=== PATIENT | female | born 1965 | race Caucasian/White ===

== ENCOUNTER 2016-10-25 17:43 | Emergency (ER) | payer MEDICAID, OTHER ==
[~2016-10-25] VITALS: Ht 157.5 cm; Wt 59.0 kg
[~2016-10-25 17:43] MED LIST: Acetaminophen PO; CLON0.5T PO; ESCI10TA PO; LACT1CAP57 PO
[2016-10-25] MEDS ORDERED: IBUP-1610 PO (17:55)
[2016-10-25] MEDS ORDERED: ALBUTEROL SULFATE 2.5 MG/3 ML NEBU NEB ONE (19:00)
[2016-10-25] MEDS ORDERED: ASPIRIN 81 MG TAB.CHEW PO ONE (19:00)
[2016-10-25] MEDS ORDERED: ASPIRIN 81 MG TAB.CHEW ONE (19:08)
[2016-10-25 19:23] LABS: ABG HCO3 24.9 mmol/L; ABG PCO2 37.4 mmHg (35.0-45.0); ABG PH 7.441 (7.350-7.450); ABG PO2 85.5 mmHg (75.0-100.0); ABG SITE RIGHT RADIAL; ABG TOTAL HEMOGLOBIN 13.6 G/dL (12.0-16.0); COHb 2.3 % (0.5-1.5); MetHb 0.2 % (0.0-1.5); O2Hb 94.4 % (94.0-97.0)
[2016-10-25 19:25] LABS: *BILIRUBIN,URIN NEGATIVE (NEGATIVE); *BLOOD, URINE Trace-intact (NEGATIVE); *CLARITY,URINE CLEAR (CLEAR); *COLOR,URINE YELLOW (YELLOW); *KETONES,URINE NEGATIVE (NEGATIVE); *PROTEIN,URINE TRACE (NEGATIVE); BASOPHILS % (AUTO) 0.4 % (0.0-2.0); EOSINOPHILS # (AUTO) 0.2 K/uL (0.0-0.7); EOSINOPHILS % (AUTO) 1.9 % (0.0-7.0); HEMATOCRIT 40.3 % (31.2-41.9); HEMOGLOBIN 14.1 g/dL (10.9-14.3); LEUKOCYTE ESTERASE ,URINE NEGATIVE (NEGATIVE); LYMPHOCYTES # (AUTO) 2.1 K/uL (20.0-40.0); LYMPHOCYTES % (AUTO) 21.6 % (20.5-51.5); MEAN CORPUSCULAR HGB CONC 35 g/dL (32.3-35.6); MEAN CORPUSCULAR VOLUME 86.2 fL (75.5-95.3); MONOCYTES # (AUTO) 0.5 K/uL (2.0-10.0); MONOCYTES % (AUTO) 5.3 % (0.0-11.0); NEUTROPHILS # (AUTO) 6.8 K/uL (1.8-8.9); NEUTROPHILS % (AUTO) 70.8 % (38.5-71.5); NITRITE, URINE NEGATIVE (NEGATIVE); PH,URINE 7.5 (5.0-8.0); PLATELET COUNT (AUTO) 268 K/uL (179-408); RED BLOOD CELL COUNT(AUTO) 4.68 MIL/uL (3.63-4.92); RED CELL DISTRIBUTION WIDTH 12.7 % (12.3-17.7); UGLUCOSE NEGATIVE (NEGATIVE); WHITE BLOOD COUNT (AUTO) 9.6 K/uL (3.8-11.8)
[2016-10-25] MEDS ORDERED: ALBUTEROL SULFATE 2.5 MG/3 ML NEBU ONE (19:26)
--- NOTE | 2016-10-25 19:30 | NUR ---
PT REFUSED TO HAVE HEP LOCK. ERMD AWARE
[2016-10-25 19:31] LABS: CREATININE 0.9 mg/dL (0.6-1.3); POTASSIUM 4.1 mmol/L (3.5-5.1)
[2016-10-25 19:35] LABS: BACTERIA,URINE FEW /HPF (NONE SEEN); RBC,URINE 0-3 /HPF (0-3)
[2016-10-25 19:36] LABS: SQUAMOUS EPITHELIAL CELL,UR MODERATE /HPF (NONE SEEN)
[2016-10-25 19:37] LABS: ALBUMIN 4.1 g/dL (3.4-5.0); BILIRUBIN,TOTAL 0.5 mg/dL (0.2-1.0); TOTAL PROTEIN, SERUM 7.6 g/dL (6.4-8.2)
[2016-10-25 21:02] VITALS: BP 130/85
--- NOTE | 2016-10-25 21:02 | NUR ---
Patient discharged to home in stable conditon WITH SISTER TAKING PATIENT HOME. Written and verbal after care instructions given. Patient verbalizes understanding of instructions. WALKED OUT OF ER WITH STEADY GAIT
== END 2016-10-25 21:03 | disposition home or self-care (01) ==
LOC: ER 17:43
DX: J45.909 Unspecified asthma, uncomplicated (principal); R94.31 Abnormal electrocardiogram [ECG] [EKG]; F41.9 Anxiety disorder, unspecified; Z88.2 Allergy status to sulfonamides
CPT/HCPCS: 36415; 36600; 70030-TC; 71010; 85025; 85610; 87400; 93005; A4663

== ENCOUNTER 2016-12-12 16:11 | Emergency (ER) | payer MEDICAID ==
[~2016-12-12] VITALS: Ht 157.5 cm; Wt 52.2 kg
[~2016-12-12 16:11] MED LIST changes: -Acetaminophen PO; -ESCI10TA PO; +IBUP-1610 PO; -LACT1CAP57 PO
[2016-12-12] MEDS ORDERED: IV NORMAL SALINE 1000 ML BAG IV ONE (16:30)
[2016-12-12] MEDS ORDERED: ALBUTEROL SULFATE 2.5 MG/3 ML NEBU CONT NEB ONE (16:30)
[2016-12-12] MEDS ORDERED: IPRATROPIUM BROMIDE 0.5 MG/2.5 ML NEBU NEB ONE (16:30)
[2016-12-12] MEDS ORDERED: ALBUTEROL SULFATE 2.5 MG/ 0.5 ML NEBU ONE (16:33)
[2016-12-12] MEDS ORDERED: IPRATROPIUM BROMIDE 0.5 MG/2.5 ML NEBU ONE (16:33)
[2016-12-12 16:40] LABS: BASOPHILS % (AUTO) 0.7 % (0.0-2.0); EOSINOPHILS # (AUTO) 0.1 K/uL (0.0-0.7); EOSINOPHILS % (AUTO) 1.7 % (0.0-7.0); HEMATOCRIT 37.1 % (37-47); HEMOGLOBIN 12.7 G/DL (12.0-16.0); LYMPHOCYTES # (AUTO) 1.3 K/UL (0.8-4.8); LYMPHOCYTES % (AUTO) 19.3 % (20.5-51.5); MEAN CORPUSCULAR HEMOGLOBIN 29.2 UUG (27.0-31.0); MEAN CORPUSCULAR HGB CONC 34 g/dL (32.0-37.0); MONOCYTES # (AUTO) 0.4 K/UL (0.1-1.30); MONOCYTES % (AUTO) 6.1 % (0.0-11.0); NEUTROPHILS # (AUTO) 4.9 K/UL (1.8-8.9); NEUTROPHILS % (AUTO) 72.2 % (38.5-71.5); PLATELET COUNT (AUTO) 210 K/UL (150-450); RED BLOOD CELL COUNT(AUTO) 4.36 MIL/UL (4.2-5.4); WHITE BLOOD COUNT (AUTO) 6.7 K/UL (4.0-11.2)
--- NOTE | 2016-12-12 16:41 | NUR ---
PT CAME FROM HOME. PT IS AMBULATORY WITH STEADY GAIT. SPEAKING IN BROKEN SENTENCES. C/O COUGH X 1 WEEK. PT STATES OF HAVING HX OF PNA. PT VERBALIZED, "IT FEELS JUST LIKE THE FIRST TIME I HAD PNA." BREATHING TXT GIVEN BY RT. WCTM PT AT THIS TIME. IVF INFUSING ORDERED.
[2016-12-12 16:49] LABS: CREATININE 0.8 mg/dL (0.6-1.3); POTASSIUM 3.8 mmol/L (3.5-5.1)
[2016-12-12 17:01] LABS: BILIRUBIN,DIRECT 0.1 mg/dL (0.0-0.2); BILIRUBIN,TOTAL 0.5 mg/dL (0.2-1.0); TOTAL PROTEIN, SERUM 7.4 g/dL (6.4-8.2)
--- NOTE | 2016-12-12 17:26 | NUR ---
Patient discharged to home in stable conditon. Written and verbal after care instructions given, precriptions provided per MD Ross's order. Patient verbalizes understanding of instructions. No further questions or concerns noted prior on leaving the ED.
== END 2016-12-12 17:28 | disposition home or self-care (01) ==
LOC: ER 16:26
DX: J40 Bronchitis, not specified as acute or chronic (principal); Z88.2 Allergy status to sulfonamides; Z90.49 Acquired absence of other specified parts of digestive tract
CPT/HCPCS: 36415; 70030-TC; 71010; 85025; 87040; 93005; A4663; J3590

== ENCOUNTER 2016-12-31 11:15 | Emergency (ER) | payer OTHER ==
[~2016-12-31] VITALS: Ht 157.5 cm; Wt 52.2 kg
--- NOTE | 2016-12-31 11:23 | NUR ---
ER MD at the bedside for eval and exam.
--- NOTE | 2016-12-31 11:25 | NUR ---
Pt states the incident occured at [facility] in [place] ( [address] [place] [address] ) at approx 0300 today.
[2016-12-31] MEDS ORDERED: KETOROLAC TROMETHAMINE 15 MG INJ IV ONE (11:30)
[2016-12-31] MEDS ORDERED: MORPHINE SULFATE 2 MG/1 ML DISP.SYRIN IV ONE (11:30)
--- NOTE | 2016-12-31 11:35 | NUR ---
Called [facility] non-emergency number and reported incident to elevator operator service #[phone] who stated she will dispatch officers to come speak with the pt.
[2016-12-31] MEDS ORDERED: KETOROLAC TROMETHAMINE 15 MG INJ ONE (11:38)
[2016-12-31] MEDS ORDERED: MORPHINE SULFATE 4 MG/1 ML DISP.SYRIN ONE ×2 (11:38→13:02)
[2016-12-31 11:43] LABS: BASOPHILS % (AUTO) 0.3 % (0.0-2.0); EOSINOPHILS % (AUTO) 0.5 % (0.0-7.0); HEMOGLOBIN 12.7 G/DL (12.0-16.0); LYMPHOCYTES # (AUTO) 1.7 K/UL (0.8-4.8); LYMPHOCYTES % (AUTO) 17.3 % (20.5-51.5); MEAN CORPUSCULAR HEMOGLOBIN 29.2 UUG (27.0-31.0); MEAN CORPUSCULAR HGB CONC 34 g/dL (32.0-37.0); MEAN CORPUSCULAR VOLUME 85.1 FL (81.0-99.0); MONOCYTES # (AUTO) 0.7 K/UL (0.1-1.30); NEUTROPHILS # (AUTO) 7.2 K/UL (1.8-8.9); NEUTROPHILS % (AUTO) 74.9 % (38.5-71.5); PLATELET COUNT (AUTO) 237 K/UL (150-450); RED BLOOD CELL COUNT(AUTO) 4.34 MIL/UL (4.2-5.4); WHITE BLOOD COUNT (AUTO) 9.6 K/UL (4.0-11.2)
--- NOTE | 2016-12-31 11:45 | NUR ---
Pt signed consent for CT contrast, placed in the chart.
[2016-12-31] MEDS ORDERED: IV NORMAL SALINE 250 ML IV ONE (11:47)
[2016-12-31] MEDS ORDERED: IOHEXOL 300MG/ML 100 ML INFUS..BTL ONE (11:47)
[2016-12-31 11:51] LABS: CREATININE 0.7 mg/dL (0.6-1.3); POTASSIUM 3.6 mmol/L (3.5-5.1)
[2016-12-31 11:57] LABS: BILIRUBIN,DIRECT 0.1 mg/dL (0.0-0.2); BILIRUBIN,TOTAL 0.4 mg/dL (0.2-1.0); TOTAL PROTEIN, SERUM 7.5 g/dL (6.4-8.2)
--- NOTE | 2016-12-31 12:10 | NUR ---
[facility] at bedside taking report from pt.
[2016-12-31] MEDS ORDERED: IV NS 1000 ML 1,000 ML IV ONE (12:15)
[2016-12-31 12:31] LABS: *BILIRUBIN,URIN NEGATIVE (NEGATIVE); *BLOOD, URINE NEGATIVE (NEGATIVE); *CLARITY,URINE SLIGHTLY CLOUDY (CLEAR); *COLOR,URINE YELLOW (YELLOW); *KETONES,URINE NEGATIVE (NEGATIVE); *PROTEIN,URINE TRACE (NEGATIVE); *UROBILINOGEN,URINE 0.2 E.U./dl (NORMAL); LEUKOCYTE ESTERASE ,URINE NEGATIVE (NEGATIVE); NITRITE, URINE NEGATIVE (NEGATIVE); PH,URINE 5.5 (5.0-8.0); UGLUCOSE NEGATIVE (NEGATIVE)
[2016-12-31 12:37] LABS: *URINE HCG, QUAL NEGATIVE (NEGATIVE)
[2016-12-31 12:48] LABS: BACTERIA,URINE FEW /HPF (NONE SEEN); RBC,URINE 0-3 /HPF (0-3); SQUAMOUS EPITHELIAL CELL,UR FEW /HPF (NONE SEEN); WBC,URINE 0-3 /HPF (0-3)
[2016-12-31] MEDS ORDERED: MORPHINE SULFATE 4 MG/1 ML DISP.SYRIN IV ONE (13:00)
--- NOTE | 2016-12-31 13:01 | NUR ---
Patient is resting comfortably in bed with eyes closed, NAD noted. Son at the bedside.
--- NOTE | 2016-12-31 14:29 | NUR ---
IV removed. Catheter intact and site benign. Pressure and 4x4 gauze applied to site. No bleeding noted.
--- NOTE | 2016-12-31 14:29 | NUR ---
Patient discharged to home in stable conditon with son. Written and verbal after care instructions given. Patient verbalizes understanding of instructions. Stressed follow up with pmd or return to ER for worsening s/s. Pt ambulatory with steady gait.
== END 2016-12-31 14:31 | disposition home or self-care (01) ==
LOC: ER 11:26
DX: S20.219A Contusion of unspecified front wall of thorax, initial encounter (principal); S00.03XA Contusion of scalp, initial encounter; R51 Headache; F41.9 Anxiety disorder, unspecified; Z88.2 Allergy status to sulfonamides; Y08.89XA Assault by other specified means, initial encounter; Y93.89 Activity, other specified; Y99.8 Other external cause status; Y92.89 Other specified places as the place of occurrence of the external cause
CPT/HCPCS: 36415; 70450; 71010; 71260; 72125; 72193; 74160; 84703; 85025; 85730; 86850; 86900; 86901; A4663; J1885; J2270; J7030; J7050; Q9967

== ENCOUNTER 2017-03-24 19:19 | Emergency (ER) | payer SELFPAY ==
[~2017-03-24] VITALS: Ht 157.5 cm; Wt 49.9 kg
--- NOTE | 2017-03-24 19:51 | NUR ---
DR. VARGAS AT BEDSIDE FOR MSE.
--- NOTE | 2017-03-24 20:57 | NUR ---
Patient discharged to home in stable conditon. Written and verbal after care instructions given. Patient verbalizes understanding of instructions. PATIENT LEFT WITH STABLE GAIT.
[2017-03-24 20:58] VITALS: BP 95/67
--- NOTE | 2017-03-24 20:59 | NUR ---
PATIENT WILL RETURN IN THE MORNING TO [facility].
== END 2017-03-24 20:59 | disposition home or self-care (01) ==
LOC: ER 19:20
DX: M19.90 Unspecified osteoarthritis, unspecified site (principal); Z88.2 Allergy status to sulfonamides; M25.512 Pain in left shoulder; M54.2 Cervicalgia
CPT/HCPCS: 73030; A4663

== ENCOUNTER → 2017-09-26 | Emergency (ER) | payer OTHER ==
[~2017-09-26] VITALS: Ht 157.5 cm; Wt 52.2 kg
[~2017-09-26] MED LIST changes: +ASPIRIN 325 MG TABLET ONE; +ATORVASTATIN TAB 10MG PO; +CLONAZEPAM 1 MG TABLET ONE; +HYDROCODONE/APAP 10-325 MG TABLET ONE; +HYDROCODONE/APAP 5-325MG TABLET ONE; -IBUP-1610 PO; +IBUP-1627 PO; +MORPHINE SULFATE 4 MG/1 ML DISP.SYRIN IM ONE; +MORPHINE SULFATE 4 MG/1 ML DISP.SYRIN ONE; +NITROGLYCERIN OINT 1 GM PACKET TP ONE; +ONDANSETRON 4 MG/2 ML VIAL IM ONE; +ONDANSETRON 4 MG/2 ML VIAL ONE; +PIPERACILLIN/TAZOBACTAM/D5W 50 ML IV ONE
--- NOTE | 2017-09-26 13:15 | NUR ---
PATIENT C/O HEADACHE. SHE IS A/A/OX3 IN NO DISTRESS.
--- NOTE | 2017-09-26 14:30 | NUR ---
PATIENT STATE SHE ALSO HAS LOWER ABDOMINAL PAIN. DR VARGAS NOTIFIED. URINE SENT TO LAB. PT CONENTS TO CT SCAN. STATES SHE IS NOT BECAUSE SHE IS IN [place]EN[place] AND HAS NOT ENGAGED IN ACTIVITES THAT WOULD CAUSE .
[2017-09-26 15:10] LABS: *BILIRUBIN,URIN NEGATIVE (NEGATIVE); *BLOOD, URINE NEGATIVE (NEGATIVE); *CLARITY,URINE CLEAR (CLEAR); *COLOR,URINE YELLOW (YELLOW); *KETONES,URINE NEGATIVE (NEGATIVE); *PROTEIN,URINE NEGATIVE (NEGATIVE); *UROBILINOGEN,URINE 0.2 E.U./dl (NORMAL); LEUKOCYTE ESTERASE ,URINE NEGATIVE (NEGATIVE); NITRITE, URINE NEGATIVE (NEGATIVE); PH,URINE 5.5 (5.0-8.0); UGLUCOSE NEGATIVE (NEGATIVE)
[2017-09-26 15:11] LABS: BACTERIA,URINE NONE SEEN /HPF (NONE SEEN); RBC,URINE NONE SEEN /HPF (0-3); SQUAMOUS EPITHELIAL CELL,UR FEW /HPF (NONE SEEN); WBC,URINE NONE SEEN /HPF (0-3)
[2017-09-26 15:12] LABS: *URINE HCG, QUAL NEGATIVE (NEGATIVE)
--- NOTE | 2017-09-26 15:31 | NUR ---
DC AND FOLLOW UP INSTRUCTIONS GIVEN AND EXPLAINED TO PATIENT WHO STATES SHE UNDERSTANDS ALL INSTRUCTIONS.
== END | disposition home or self-care (01) ==
LOC: ER 13:08
DX: G43.909 Migraine, unspecified, not intractable, without status migrainosus (principal); E78.5 Hyperlipidemia, unspecified; Z90.49 Acquired absence of other specified parts of digestive tract; Z88.2 Allergy status to sulfonamides; Z79.1 Long term (current) use of non-steroidal anti-inflammatories (NSAID); Z79.899 Other long term (current) drug therapy
CPT/HCPCS: 84703; A4663; J2270; J2405

== ENCOUNTER 2017-11-27 09:06 | Emergency (ER) | payer OTHER ==
[~2017-11-27] VITALS: Ht 157.5 cm; Wt 52.2 kg
[~2017-11-27 09:06] MED LIST changes: -ASPIRIN 325 MG TABLET ONE; -CLONAZEPAM 1 MG TABLET ONE; -HYDROCODONE/APAP 10-325 MG TABLET ONE; -HYDROCODONE/APAP 5-325MG TABLET ONE; -MORPHINE SULFATE 4 MG/1 ML DISP.SYRIN IM ONE; -MORPHINE SULFATE 4 MG/1 ML DISP.SYRIN ONE; -NITROGLYCERIN OINT 1 GM PACKET TP ONE; -ONDANSETRON 4 MG/2 ML VIAL IM ONE; -ONDANSETRON 4 MG/2 ML VIAL ONE; -PIPERACILLIN/TAZOBACTAM/D5W 50 ML IV ONE
--- NOTE | 2017-11-27 09:10 | NUR ---
Pt ambulated into ER c/o chest pain, placed in room 2a, stat EKG done, placed on cont monitor, notified.
[2017-11-27] MEDS ORDERED: ACETAMINOPHEN ES 500 MG TABLET PO ONE (09:30)
[2017-11-27] MEDS ORDERED: ACETAMINOPHEN ES 500 MG TABLET ONE (09:42)
[2017-11-27 09:51] LABS: BASOPHILS % (AUTO) 0.5 % (0.0-2.0); EOSINOPHILS # (AUTO) 0.1 K/uL (0.0-0.7); EOSINOPHILS % (AUTO) 1.9 % (0.0-7.0); HEMATOCRIT 37.2 % (31.2-41.9); HEMOGLOBIN 13.1 g/dL (10.9-14.3); LYMPHOCYTES % (AUTO) 38.9 % (20.5-51.5); MEAN CORPUSCULAR HGB CONC 35 g/dL (32.3-35.6); MEAN CORPUSCULAR VOLUME 85.5 fL (75.5-95.3); MONOCYTES # (AUTO) 0.4 K/uL (2.0-10.0); MONOCYTES % (AUTO) 7.3 % (0.0-11.0); NEUTROPHILS # (AUTO) 2.7 K/uL (1.8-8.9); NEUTROPHILS % (AUTO) 51.4 % (38.5-71.5); PLATELET COUNT (AUTO) 216 K/uL (179-408); RED BLOOD CELL COUNT(AUTO) 4.36 MIL/uL (3.63-4.92); WHITE BLOOD COUNT (AUTO) 5.2 K/uL (3.8-11.8)
[2017-11-27 09:57] LABS: CREATININE 0.8 mg/dL (0.6-1.3); POTASSIUM 4.2 mmol/L (3.5-5.1)
[2017-11-27 10:00] LABS: *URINE HCG, QUAL NEGATIVE (NEGATIVE)
[2017-11-27 10:03] LABS: BILIRUBIN,DIRECT 0.1 mg/dL (0.0-0.2); BILIRUBIN,TOTAL 0.4 mg/dL (0.2-1.0)
[2017-11-27] MEDS ORDERED: IOHEXOL 350 100 ML INFUS..BTL ONE (10:21)
[2017-11-27] MEDS ORDERED: SWABABLE VALVE TRANSFER SET EA MC ONE (10:21)
[2017-11-27] MEDS ORDERED: IV NORMAL SALINE 100 ML ONE (10:21)
--- NOTE | 2017-11-27 10:53 | NUR ---
ALL MD ORDERS COMPLETED, OPT RESTING, MONITOR SHOWS NSR,PO2=95% ON ROOM AIR, PT AWAITING FOR TESTS RESULTS
[2017-11-27] MEDS ORDERED: IV NORMAL SALINE 1000 ML BAG IV ONE (11:45)
[2017-11-27] MEDS ORDERED: diphenhydrAMINE 50 MG/1 ML VIAL IV ONE (11:45)
[2017-11-27] MEDS ORDERED: METOCLOPRAMIDE HCL 10 MG/2 ML VIAL IV ONE (11:45)
[2017-11-27] MEDS ORDERED: METOCLOPRAMIDE HCL 10 MG/2 ML VIAL ONE (11:46)
[2017-11-27] MEDS ORDERED: diphenhydrAMINE 50 MG/1 ML VIAL ONE (11:46)
[2017-11-27] MEDS ORDERED: ASPIRIN 325 MG TABLET PO ONE (13:30)
[2017-11-27] MEDS ORDERED: ASPIRIN 325 MG TABLET ONE (13:30)
--- NOTE | 2017-11-27 13:44 | NUR ---
MSE COMPLETED, PT D/C'D HOME, ACI/RX X1 GIVEN.ALSO GIVEN COPY'S OF EKG'S,LAB RESULTS AND XRAY RESULTS. PT HAD IV D/C'D INTACT, PT AMBULATED W/O DIFF, TOOK ALL BELONGINGS.
[2017-11-27 13:47] VITALS: BP 132/66
== END 2017-11-27 13:48 | disposition home or self-care (01) ==
LOC: ER 09:06
DX: R07.9 Chest pain, unspecified (principal); G43.909 Migraine, unspecified, not intractable, without status migrainosus; E78.5 Hyperlipidemia, unspecified; Z88.2 Allergy status to sulfonamides; Z79.1 Long term (current) use of non-steroidal anti-inflammatories (NSAID); Z79.899 Other long term (current) drug therapy
CPT/HCPCS: 36415; 70450; 70496; 71045; 80048; 80076; 84484 ×2; 84703; 85025; 85730; 93005 ×2; 96374; 96375; 99285; A4663; A9150; J1200; J2765; J3490; J7030; Q9967; 70030-TC

== ENCOUNTER 2019-06-26 17:02 | Emergency (ER) | END 2019-06-26 20:25 | disposition home or self-care (01) | DX: J45.909 Unspecified asthma, uncomplicated (principal); R07.9 Chest pain, unspecified; E78.5 Hyperlipidemia, unspecified; Z90.49 Acquired absence of other specified parts of digestive tract; Z88.2 Allergy status to sulfonamides; Z79.1 Long term (current) use of non-steroidal anti-inflammatories (NSAID); Z79.899 Other long term (current) drug therapy ==

== ENCOUNTER 2019-08-04 09:16 | Emergency (ER) | payer OTHER ==
[~2019-08-04] VITALS: Ht 157.5 cm; Wt 52.2 kg
[2019-08-04] MEDS ORDERED: ALBUTEROL SULFATE 2.5 MG/3 ML NEBU ONE ×3 (09:56→12:22)
[2019-08-04] MEDS ORDERED: ALBUTEROL SULFATE 2.5 MG/3 ML NEBU NEB ONE ×3 (10:00→12:15)
[2019-08-04] MEDS ORDERED: IPRATROPIUM BROMIDE 0.5 MG/2.5 ML NEBU NEB ONE (12:15)
[2019-08-04] MEDS ORDERED: predniSONE 20 MG TABLET PO ONE (12:15)
[2019-08-04] MEDS ORDERED: predniSONE 20 MG TABLET ONE (12:21)
[2019-08-04] MEDS ORDERED: IPRATROPIUM BROMIDE 0.5 MG/2.5 ML NEBU ONE (12:22)
[2019-08-04] MEDS ORDERED: LORAZEPAM 1 MG TABLET ONE (13:13)
[2019-08-04] MEDS ORDERED: LORAZEPAM 0.5 MG TABLET PO ONE (13:15)
--- NOTE | 2019-08-04 13:29 | NUR ---
Patient does not wish to proceed with medical care recommended by Dr. Eyal owens ). Patient given information related to possible complications, up to and including , which could occur as a result of leaving the hospital at this time. Patient verbalizes understanding of risks involved due to leaving against medical advice. Patient has signed AMA form.
[2019-08-04 13:31] VITALS: BP 111/77
--- NOTE | 2019-08-04 13:32 | NUR ---
pt walks in steay gait. pt with so. pt not driving
== END 2019-08-04 13:33 | disposition left against medical advice (07) ==
LOC: ER 09:16
DX: R05 Cough (principal); R06.02 Shortness of breath; R07.89 Other chest pain; F41.9 Anxiety disorder, unspecified; E78.5 Hyperlipidemia, unspecified; G43.909 Migraine, unspecified, not intractable, without status migrainosus; Z88.2 Allergy status to sulfonamides; Z90.49 Acquired absence of other specified parts of digestive tract; Z79.899 Other long term (current) drug therapy
CPT/HCPCS: 71045; 93005; 94640 ×2; 94644; 99285; J7512; A4663; J3590

== ENCOUNTER 2020-06-28 23:55 | Emergency (ER) | payer SELFPAY | END 2020-06-29 00:20 | disposition left against medical advice (07) | LOC: ER 06-29 00:01 | DX: Z75.3 Unavailability and inaccessibility of health-care facilities (principal) ==

== ENCOUNTER 2020-12-16 12:05 | Emergency (ER) | payer BC, OTHER ==
[~2020-12-16] VITALS: Ht 157.5 cm; Wt 52.2 kg
[2020-12-16] MEDS ORDERED: CLON0.5T PO (12:32)
[2020-12-16] MEDS ORDERED: ZOLP5TAB2 PO (12:32)
[2020-12-16] MEDS ORDERED: IV NORMAL SALINE 1000 ML BAG IV ONE (12:45)
[2020-12-16] MEDS ORDERED: HYDROMORPHONE 1 MG/1 ML DISP.SYRIN IV ONE (12:45)
[2020-12-16] MEDS ORDERED: ONDANSETRON 4 MG/2 ML VIAL IV ONE (12:45)
[2020-12-16] MEDS ORDERED: ONDANSETRON 4 MG/2 ML VIAL ONE (12:59)
[2020-12-16] MEDS ORDERED: HYDROMORPHONE 1 MG/1 ML DISP.SYRIN ONE (12:59)
[2020-12-16 13:00] LABS: HEMATOCRIT 39.5 % (31.2-41.9); MEAN CORPUSCULAR HEMOGLOBIN 29.2 uug (24.7-32.8); MEAN CORPUSCULAR VOLUME 86.8 fL (75.5-95.3); PLATELET COUNT (AUTO) 195 K/uL (179-408)
[2020-12-16 13:01] LABS: *BILIRUBIN,URIN NEGATIVE (NEGATIVE); *BLOOD, URINE NEGATIVE (NEGATIVE); *CLARITY,URINE CLEAR (CLEAR); *COLOR,URINE YELLOW (YELLOW); *KETONES,URINE NEGATIVE (NEGATIVE); *UROBILINOGEN,URINE 0.2 E.U./dl (NORMAL); LEUKOCYTE ESTERASE ,URINE NEGATIVE (NEGATIVE); NITRITE, URINE NEGATIVE (NEGATIVE); PH,URINE 5.5 (5.0-8.0); UGLUCOSE NEGATIVE (NEGATIVE)
[2020-12-16 13:02] LABS: *URINE HCG, QUAL NEGATIVE (NEGATIVE)
[2020-12-16 13:09] LABS: CREATININE 0.7 mg/dL (0.6-1.3)
[2020-12-16 13:20] LABS: BILIRUBIN,DIRECT 0.1 mg/dL (0.0-0.2); BILIRUBIN,TOTAL 0.4 mg/dL (0.2-1.0); TOTAL PROTEIN, SERUM 7.1 g/dL (6.4-8.2)
[2020-12-16] MEDS ORDERED: CIPR500T5 PO (13:39)
--- NOTE | 2020-12-16 14:49 | NUR ---
Patient discharged to home in stable condition. Written and verbal after care instructions given. Patient verbalizes understanding of instructions. Stressed follow up or return to ER for worsening s/s.pt walks in steady gait. pt ride waiting for pt outside to take the pt home.
[2020-12-16 14:50] VITALS: BP 110/72
== END 2020-12-16 14:51 | disposition home or self-care (01) ==
LOC: ER 12:05
DX: K52.9 Noninfective gastroenteritis and colitis, unspecified (principal); K56.7 Ileus, unspecified; Z87.01 Personal history of pneumonia (recurrent); E78.5 Hyperlipidemia, unspecified; Z83.3 Family history of diabetes mellitus
CPT/HCPCS: 36415; 74176; 80048; 80076; 81003; 83690; 84703; 85025; 96361; 96374; 96375; 99284; J1170; J2405; A4663; J7030

== ENCOUNTER 2022-03-25 12:52 | Emergency (ER) | payer OTHER ==
[~2022-03-25] VITALS: Ht 157.5 cm; Wt 49.9 kg
[~2022-03-25 12:52] MED LIST changes: -ATORVASTATIN TAB 10MG PO; +CIPR500T5 PO; +ZOLP5TAB2 PO
--- NOTE | 2022-03-25 13:54 | NUR ---
MD at bedside for evaluation
[2022-03-25] MEDS ORDERED: NAPR-1164 PO (14:43)
--- NOTE | 2022-03-25 15:00 | NUR ---
DCD instructions and prescription given to pt. and also instructed to follow up and schedule an appointment with lathe hand information provided. .
== END 2022-03-25 15:01 | disposition home or self-care (01) ==
LOC: ER 12:52
DX: M79.672 Pain in left foot (principal); G62.9 Polyneuropathy, unspecified; Z83.3 Family history of diabetes mellitus; E78.5 Hyperlipidemia, unspecified
CPT/HCPCS: 73630; A4663

== ENCOUNTER 2022-05-18 12:32 | Emergency (ER) | payer OTHER ==
[~2022-05-18] VITALS: Ht 157.5 cm; Wt 53.1 kg
[~2022-05-18 12:32] MED LIST changes: +NAPR-1164 PO
--- NOTE | 2022-05-18 12:46 | NUR ---
[email or web address], medical screening exam in progress
[2022-05-18] MEDS ORDERED: KETOROLAC TROMETHAMINE 15 MG INJ IM ONE (13:00)
[2022-05-18] MEDS ORDERED: IPRATROPIUM BROMIDE 0.5 MG/2.5 ML NEBU NEB ONE (13:00)
[2022-05-18] MEDS ORDERED: ALBUTEROL SULFATE 2.5 MG/3 ML NEBU NEB ONE (13:00)
[2022-05-18] MEDS ORDERED: IPRATROPIUM BROMIDE 0.5 MG/2.5 ML NEBU ONE (13:11)
[2022-05-18] MEDS ORDERED: ALBUTEROL SULFATE 2.5 MG/3 ML NEBU ONE (13:11)
[2022-05-18] MEDS ORDERED: KETOROLAC TROMETHAMINE 30 MG INJ ONE (13:13)
[2022-05-18] MEDS ORDERED: ACETAMINOPHEN ES 500 MG TABLET ONE (13:13)
[2022-05-18] MEDS ORDERED: ACETAMINOPHEN ES 500 MG TABLET PO ONE (13:15)
--- NOTE | 2022-05-18 14:00 | NUR ---
Patient is resting comfortably on gurney while using her personal electronic device, NAD.
[2022-05-18] MEDS ORDERED: NAPR500T6 PO (14:30)
[2022-05-18] MEDS ORDERED: ALBU18HF2 INH (14:30)
[2022-05-18] MEDS ORDERED: PRED50TA PO (14:30)
[2022-05-18] MEDS ORDERED: GUAI-671 PO (14:32)
--- NOTE | 2022-05-18 14:54 | NUR ---
IV removed. Catheter intact and site benign. Pressure and 4x4 gauze applied to site. No bleeding noted. Patient discharged to home in stable condition. Written and verbal after care instructions given with brisk steady gait. Patient verbalized understanding and compliance of instructions. Stressed follow up with primary doctor or return to ER for worsening s/s.
== END 2022-05-18 14:55 | disposition home or self-care (01) ==
LOC: ER 12:46
DX: J45.909 Unspecified asthma, uncomplicated (principal); B34.9 Viral infection, unspecified; Z20.822 Contact with and (suspected) exposure to COVID-19; Z82.49 Family history of ischemic heart disease and other diseases of the circulatory system; Z83.3 Family history of diabetes mellitus; Z87.01 Personal history of pneumonia (recurrent); G62.9 Polyneuropathy, unspecified; E78.5 Hyperlipidemia, unspecified; M47.892 Other spondylosis, cervical region; R00.0 Tachycardia, unspecified
CPT/HCPCS: 99285; 96374; 71045; 87426; 87400; 93005; 94640; J1885; A4663; A9150; J3590

== ENCOUNTER 2022-05-25 12:00 | Emergency (ER) | payer OTHER ==
[~2022-05-25] VITALS: Ht 157.5 cm; Wt 52.2 kg
[~2022-05-25 12:00] MED LIST changes: +ALBU18HF2 INH; +GUAI-671 PO; +NAPR500T6 PO; +PRED50TA PO
--- NOTE | 2022-05-25 13:06 | NUR ---
Patient was called from ER waiting room for blood draw, no answer, notified.
--- NOTE | 2022-05-25 13:26 | NUR ---
called from waiting room, no answer
--- NOTE | 2022-05-25 16:01 | NUR ---
called for x-ray, no answer
== END 2022-05-25 16:57 | disposition left against medical advice (07) ==
LOC: ER 12:33
DX: Z53.21 Procedure and treatment not carried out due to patient leaving prior to being seen by health care provider (principal)